=== PATIENT | female | born 1980 | race Caucasian/White ===

== ENCOUNTER 2023-05-02 12:33 | Day surgery (SDC) | payer OTHER | END 2023-05-02 14:15 | disposition home or self-care (01) | LOC: CSHULT 12:33 | PROVIDERS: ATTEND Otolaryngology Plastic Surgery within the Head & Neck | PROC: 0GBG3ZX Excision of Left Thyroid Gland Lobe, Percutaneous Approach, Diagnostic (ICD-10-PCS; principal; 2023-05-02) | DX: E04.9 Nontoxic goiter, unspecified (principal); E04.1 Nontoxic single thyroid nodule; E05.90 Thyrotoxicosis, unspecified without thyrotoxic crisis or storm | CPT/HCPCS: 10005 ==